=== PATIENT | male | born 1985 | race Caucasian/White ===

== ENCOUNTER 2019-04-14 12:46 | Emergency (ER) | payer SELFPAY ==
[2019-04-14] MEDS ORDERED: DOXYCYC MONO100 M2 PO (14:10)
[2019-04-14 14:18] VITALS: BP 157/77
== END 2019-04-14 14:31 | disposition home or self-care (01) | DRG 605 ==
LOC: ED 12:46
PROC: 0HQ1XZZ Repair Face Skin, External Approach (ICD-10-PCS; principal; 2019-04-14)
DX: S01.412A Laceration without foreign body of left cheek and temporomandibular area, initial encounter (principal); X58.XXXA Exposure to other specified factors, initial encounter; Y92.89 Other specified places as the place of occurrence of the external cause; Y99.0 Civilian activity done for income or pay